=== PATIENT | male | born 1955 | race Caucasian/White ===

== ENCOUNTER → 2022-06-14 | Day surgery (SDC) | payer MEDICARE ==
[~2022-06-14] MED LIST: AMLODIPINE BESY10 MG PO; ATORVASTATIN CA20 MG PO; BENAZEPRIL HCL10 MG PO; FENTANYL CITRATE/PF 100MCG/2 ML INJ ONE; GLUCOSAMINE 1,1 EACH PO; HYDROCHLOROTHIA25 MG PO; METFORMIN HCL500 MG PO; MIDAZOLAM HCL 2 MG/2 ML VIAL ONE; MULTI-VITAMIN1 EACH PO; OR PHACO EYE KIT ONE; PREOP PHACO EYE KIT ONE; VITAMIN B-121000 MCG PO; VITAMIN D3 COM1 EACH; VITAMIN D3 MA125 MCG PO
[2022-06-14 15:10] VITALS: BP 139/80
== END | disposition home or self-care (01) ==
LOC: OR 10:37
PROVIDERS: ATTEND Ophthalmology
DX: H25.12 Age-related nuclear cataract, left eye (principal); E11.9 Type 2 diabetes mellitus without complications; I10 Essential (primary) hypertension; E78.5 Hyperlipidemia, unspecified; Z88.6 Allergy status to analgesic agent; Z79.84 Long term (current) use of oral hypoglycemic drugs; Z79.899 Other long term (current) drug therapy
CPT/HCPCS: 66984; J2250; J3010; V2632

== ENCOUNTER → 2022-07-12 | Day surgery (SDC) | payer MEDICARE ==
[2022-07-12 11:02] LABS: BASOPHILS % 0.6 % (0.0-1.0); EOSINOPHILS # (AUTO) 0.1 (0.0-0.4); EOSINOPHILS % 1.8 % (0.0-6.0); HEMATOCRIT 48.4 % (38.2-49.6); HEMOGLOBIN 15.4 g/dL (14.0-18.0); LYMPHOCYTES # (AUTO) 1.6 (1.0-3.2); LYMPHOCYTES % 22.3 % (18.0-39.1); MEAN CORPUSCULAR HEMOGLOBIN 31.4 pg (28-32); MEAN CORPUSCULAR HGB CONC 31.8 g/dL (31-35); MEAN CORPUSCULAR VOLUME 98.8 fL (81-99); MONOCYTES # (AUTO) 0.8 (0.2-0.8); MONOCYTES % 11.2 % (4.4-11.3); NEUTROPHILS # (AUTO) 4.5 (2.1-6.9); NEUTROPHILS % 63.8 % (38.7-80.0); PLATELET COUNT 199 x10e3/uL (140-360); RED CELL DISTRIBUTION WIDTH 13.2 % (11.7-14.4)
[2022-07-12 12:31] VITALS: BP 151/83
== END | disposition home or self-care (01) ==
LOC: OR 10:13
PROVIDERS: ATTEND Ophthalmology
DX: H25.11 Age-related nuclear cataract, right eye (principal); E11.9 Type 2 diabetes mellitus without complications; I10 Essential (primary) hypertension; E78.5 Hyperlipidemia, unspecified; F17.210 Nicotine dependence, cigarettes, uncomplicated; Z88.6 Allergy status to analgesic agent; Z79.84 Long term (current) use of oral hypoglycemic drugs; Z79.899 Other long term (current) drug therapy
CPT/HCPCS: 36415; 82948; 85025; J2250; J3010